=== PATIENT | male | born 1965 | race Hispanic/Latino ===

== ENCOUNTER 2017-11-09 20:33 | Emergency (ER) | payer MEDICARE, OTHER ==
[2017-11-09 21:18] VITALS: RESP 18
[2017-11-09] MEDS ORDERED: Alum-Mag Hydrox-Simethicone Susp (30 mL) PO STA (21:37)
--- NOTE | 2017-11-09 21:54 | ED PDOC ---
Arrival/HPI - General Chief Complaint: GI Problem Time Seen by Provider: 11/09/17 21:36 Historian: Patient - History of Present Illness Narrative History of Present Illness (Text): 11/09/17 21:54 A 52 year old male, whose past medical history includes diabetes and hypertension, presents to the emergency department complaining of vomiting and abdominal pain that developed after eating something for lunch today. Patient also reports diarrhea but denies any shortness of breath or any other complaints at this time. Symptom Onset: Sudden Symptom Course: Unchanged Activities at Onset: Rest Context: Home Past Medical History - Provider Review Nursing Documentation Reviewed: Yes - Infectious Disease Hx of Infectious Diseases: None - Cardiac Hx Cardiac Disorders: Yes Hx Hypertension: Yes Other/Comment: stent x1 - Pulmonary Hx Respiratory Disorders: No - Neurological Hx Neurological Disorder: No - HEENT Hx HEENT Disorder: No - Renal Hx Renal Disorder: No - Endocrine/Metabolic Hx Endocrine Disorders: Yes Hx Diabetes Mellitus Type 2: Yes - Hematological/Oncological Hx Blood Disorders: No - Integumentary Hx Dermatological Disorder: No - Musculoskeletal/Rheumatological Hx Musculoskeletal Disorders: No - Gastrointestinal Hx Gastrointestinal Disorders: No - Genitourinary/Gynecological Hx Genitourinary Disorders: No - Psychiatric Hx Psychophysiologic Disorder: Yes Hx Anxiety: Yes Hx Substance Use: No - Surgical History Hx Cardiac Catheterization: Yes (05/2011) Hx Coronary Stent: Yes (x1) - Anesthesia Hx Anesthesia: Yes Hx Anesthesia Reactions: No Family/Social History - Physician Review Nursing Documentation Reviewed: Yes Family/Social History: No Known Family HX Smoking Status: Never Smoked Hx Alcohol Use: No Hx Substance Use: No Allergies/Home Meds Allergies/Adverse Reactions: Allergies clopidogrel [From Plavix] Allergy (Verified 11/09/17 21:13) RASH Home Medications: Home Meds Medication Instructions Recorded Confirmed Aspirin [Adult Low Dose Aspirin EC] 81 mg PO DAILY 11/09/17 11/09/17 Cyclobenzaprine [Flexeril] 10 mg PO HS 11/09/17 11/09/17 LORazepam [Ativan] 1 mg PO QID 11/09/17 11/09/17 Lisinopril [Zestril] 10 mg PO DAILY 11/09/17 11/09/17 Sertraline [Zoloft] 50 mg PO DAILY 11/09/17 11/09/17 Zolpidem [Ambien] 10 mg PO HS 11/09/17 11/09/17 amLODIPine [Norvasc] 10 mg PO DAILY 11/09/17 11/09/17 metFORMIN [glucOPHAGE] 1 tab PO DAILY 11/09/17 11/09/17 risperiDONE [RisperDAL Tab] 10 mg PO DAILY 11/09/17 11/09/17 Review of Systems - Physician Review All systems were reviewed & negative as marked: Yes - Review of Systems Respiratory: absent: SOB Gastrointestinal: Abdominal Pain, Diarrhea, Vomiting Physical Exam Vital Signs Reviewed: Yes Vital Signs Temp Pulse Resp BP Pulse Ox 11/10/17 01:46 99.3 F 11/10/17 00:54 109 H 18 105/68 97 11/09/17 22:15 101.2 F H 11/09/17 21:15 101.2 F H 120 H 18 127/90 96 Temperature: Febrile Blood Pressure: Normal Pulse: Tachycardic Respiratory Rate: Normal Appearance: Positive for: Well-Appearing, Non-Toxic, Comfortable Pain Distress: None Mental Status: Positive for: Alert and Oriented X 3 - Systems Exam Head: Present: Atraumatic, Normocephalic Pupils: Present: PERRL Extroacular Muscles: Present: EOMI Conjunctiva: Present: Normal Mouth: Present: Moist Mucous Membranes Neck: Present: Normal Range of Motion Respiratory/Chest: Present: Clear to Auscultation, Good Air Exchange. No: Respiratory Distress, Accessory Muscle Use Cardiovascular: Present: Regular Rate and Rhythm, Normal S1, S2. No: Murmurs Abdomen: Present: Normal Bowel Sounds. No: Tenderness, Distention, Peritoneal Signs Back: Present: Normal Inspection Upper Extremity: Present: Normal Inspection. No: Cyanosis, Edema Lower Extremity: Present: Normal Inspection. No: Edema Neurological: Present: GCS=15, CN II-XII Intact, Speech Normal Skin: Present: Warm, Dry, Normal Color. No: Rashes Psychiatric: Present: Alert, Oriented x 3, Normal Insight, Normal Concentration Medical Decision Making ED Course and Treatment: 11/09/17 21:53 Impression: A 52 year old male with vomiting, abdominal pain and diarrhea. Plan: -- Radiology abdomen -- CT abd/pelvis -- labs -- Urinalysis -- Pepcid, Zofran, Maalox -- Reassess and disposition Progress Notes: CT Abdomen and Pelvis With Intravenous Contrast FINDINGS: Lower thorax: Mild hazy infiltration of the lung bases with mild peribronchial cuffing. Correlation with patient's hydration status is recommended. ABDOMEN: Liver: Fatty liver. Gallbladder and bile ducts: Unremarkable. No ductal dilation. Pancreas: Unremarkable. No mass. No ductal dilation. Spleen: Unremarkable. No splenomegaly. Adrenals: Unremarkable. No mass. Kidneys and ureters: Nonobstructive right upper pole renal stone. Right renal hypodensity too small to characterize. Stomach and bowel: Diverticulosis. No obstruction. No mucosal thickening. Appendix: Normal appendix. PELVIS: Bladder: Partially distended bladder with bladder wall thickening. Correlation with urinalysis is recommended only if clinical cystitis is suspected. Reproductive: Mild enlargement of prostate gland. ABDOMEN and PELVIS: Intraperitoneal space: Unremarkable. No free air. No significant fluid collection. Bones/joints: L5-S1 vacuum degenerative disc disease. No acute fracture. No dislocation. Soft tissues: Right inguinal herniation of fat. There is a fat-containing umbilical hernia. Vasculature: Unremarkable. No abdominal aortic aneurysm. Lymph nodes: Unremarkable. No enlarged lymph nodes. IMPRESSION: 1. Mild hazy infiltration of the lung bases with mild peribronchial cuffing. Correlation with patient's hydration status is recommended. 2.No acute abnormality on this contrast CT examination of the abdomen and pelvis . Dictated and Authenticated by: Ely Marina MD 11/10/2017 2:50 AM Eastern Time ([place] & [place]) 11/10/17 04:08 Chest xray: No active disease, as read by me. - Lab Interpretations Lab Results: 11/09/17 22:10 11/09/17 22:10 Lab Results 11/09/17 22:20: Influenza Typ A,B (EIA) Negative for flu a/b 11/09/17 22:10: Sodium 139, Potassium 4.0, Chloride 101, Carbon Dioxide 22, Anion Gap 20, BUN 22 H, Creatinine 0.9, Est GFR ( Amer) > 60, Est GFR ( Non-Af Amer) > 60, Random Glucose 186 H, Calcium 9.4, Total Bilirubin 1.1, AST 41, ALT 32, Alkaline Phosphatase 63, Total Protein 7.7, Albumin 4.3, Globulin 3.4, Albumin/Globulin Ratio 1.3, Lipase 126 11/09/17 22:10: PT 12.6 H, INR 1.10 H 11/09/17 22:10: WBC 14.0 H, RBC 5.33, Hgb 15.8, Hct 44.8, MCV 84.1, MCH 29.6, MCHC 35.3, RDW 13.2, Plt Count 284, MPV 10.6, Gran % 90.2 H, Lymph % (Auto) 4.6 L, [place] % (Auto) 4.0, Eos % (Auto) 1.1 L, Baso % (Auto) 0.1, Gran # 12.64 H, Lymph # 0.6 L, [place] # 0.6, Eos # 0.2, Baso # 0.01, Neutrophils % (Manual) 77 H, Band Neutrophils % 8 H, Lymphocytes % (Manual) 8 L, Monocytes % (Manual) 5, Eosinophils % (Manual) 1, Basophils % (Manual) 1, Platelet Evaluation Normal 11/09/17 21:37: Urine Color Yellow, Urine Appearance Clear, Urine pH 6.0, Ur Specific [place] 1.025, Urine Protein Negative, Urine Glucose (UA) 250 H, Urine Ketones Trace H, Urine Blood Negative, Urine Nitrate Negative, Urine Bilirubin Negative, Urine Urobilinogen 0.2, Ur Leukocyte Esterase Negative I have reviewed the lab results: Yes - RAD Interpretation Radiology Orders: 11/09/17 21:43 ABD 2 VIEWS (FLAT/UP OR DECUB) [RAD] Stat 11/09/17 23:14 ABD PELVIS PO & IV CONTRAST [CT] Stat 11/10/17 03:05 CXR [CHEST PORTABLE] [RAD] Stat - Medication Orders Current Medication Orders: Discontinued Medications Acetaminophen (Tylenol 325mg Tab) 650 mg PO STAT STA Stop: 11/09/17 22:13 Last Admin: 11/09/17 22:15 Dose: 650 mg MAR Pain/Vitals Document 11/09/17 22:15 GMD (Rec: 11/09/17 22:15 GMD [facility] [place] [facility] [id number] Pain Reassessment Is This A Pain ReAssessment? No Sleep Is patient sleeping during reassessment? No Presence of Pain Presence of Pain Yes Vitals Temperature (97.6 F-99.6 F) 101.2 F Temperature Source Oral Al Hydrox/Mg Hydrox/Simethicone (Maalox Plus 30 Ml) 30 ml PO STAT STA Stop: 11/09/17 21:38 Last Admin: 11/09/17 21:50 Dose: 30 ml Famotidine (Pepcid) 40 mg PO STAT STA Stop: 11/09/17 21:38 Last Admin: 11/09/17 21:50 Dose: 40 mg Ondansetron HCl (Zofran Odt) 8 mg PO STAT STA Stop: 11/09/17 21:38 Last Admin: 11/09/17 21:50 Dose: 8 mg - PA / RESIDENTIAL [employer] / Resident Statement MD/DO has reviewed & agrees with the documentation as recorded. - Scribe Statement The provider has reviewed the documentation as recorded by the Scribe Kasi Lee All medical record entries made by the Scribe were at my direction and personally dictated by me. I have reviewed the chart and agree that the record accurately reflects my personal performance of the history, physical exam, medical decision making, and the department course for this patient. I have also personally directed, reviewed, and agree with the discharge instructions and disposition. Disposition/Present on Arrival - Present on Arrival Any Indicators Present on Arrival: No History of DVT/PE: No History of Uncontrolled Diabetes: No Urinary Catheter: No History of Decub. Ulcer: No History Surgical Site Infection Following: None - Disposition Have Diagnosis and Disposition been Completed?: Yes Diagnosis: Viral gastroenteritis Disposition: HOME/ ROUTINE Disposition Time: 04:05 Patient Plan: Discharge Discharge Instructions (ExitCare): Gastroenteritis (ED) Additional Instructions: Mr Huber, Clear liquids only, Zofran for Nausea or Vomiting, Reutn to us if worse. See your doctor this week. Best- Dr. Morales Garcia Prescriptions: Ondansetron ODT [Zofran ODT] 8 mg PO TID #30 odt Referrals: Shabana Lomas, [Primary Care Provider] - Follow up with primary Forms: [employer] ([place])
[2017-11-09 22:23] LABS: BASO # 0.01 K/mm3 (0.0-2.0); BASO % 0.1 % (0.0-3.0); EOS # 0.2 (0.0-0.7); EOS % 1.1 % (1.5-5.0); GRAN # 12.64 (1.4-6.5); GRAN % 90.2 % (50.0-68.0); HEMOGLOBIN 15.8 g/dL (14.0-18.0); LYMPH # 0.6 (1.2-3.4); LYMPH % 4.6 % (22.0-35.0); MEAN CELL VOLUME 84.1 fl (80.0-105.0); MEAN CORPUSCULAR HEMOGLOBIN 29.6 pg (25.0-35.0); MEAN CORPUSCULAR HGB CONC 35.3 g/dl (31.0-37.0); MEAN PLATELET VOLUME 10.6 fl (7.0-11.0); MONO # 0.6 (0.1-0.6); PLATELET COUNT 284 10^3/uL (120.0-450.0); RBC 5.33 10^6/uL (3.5-6.1); RED CELL DISTRIBUTION WIDTH 13.2 % (11.5-14.5)
[2017-11-09 22:28] LABS: INR 1.1 (0.93-1.08); PROTHROMBIN TIME 12.6 SECONDS (9.4-12.5)
[2017-11-09 22:48] LABS: ALB/GLOB RATIO 1.3 (1.1-1.8); ALBUMIN 4.3 g/dL (3.0-4.8); ALT/SGPT 32 U/L (7-56); AST/SGOT 41 U/L (17-59); BLOOD UREA NITROGEN 22 mg/dL (7-21); CALCIUM 9.4 mg/dL (8.4-10.5); GFR AFRICAN-AMERICAN > 60; GFR NON-AFRICAN AMERICAN > 60; LIPASE 126 U/L (23-300)
[2017-11-09] MEDS ORDERED: Iohexol 240 (50 ml) ONE (23:16)
[2017-11-10 00:11] LABS: URINE BILIRUBIN NEGATIVE (NEGATIVE); URINE BLOOD NEGATIVE (NEGATIVE); URINE GLUCOSE (UA) 250 mg/dL (NEGATIVE); URINE LEUKOCYTE ESTERASE NEGATIVE Leu/uL (NEGATIVE); URINE NITRATE NEGATIVE (NEGATIVE); URINE PROTEIN NEGATIVE mg/dL (<30 mg/dL); URINE UROBILINOGEN 0.2 E.U./dL (<1 E.U./dL)
[2017-11-10 00:12] LABS: URINE APPEARANCE CLEAR (CLEAR); URINE COLOR YELLOW (YELLOW)
[2017-11-10 00:27] LABS: BAND 8 % (0-2); BASOPHIL 1 % (0.0-1.0); EOSINOPHIL 1 % (0.0-3.0); LYMPHOCYTE 8 % (22.0-35.0); MONOCYTE 5 % (1.0-6.0); NEUTROPHIL 77 % (50.0-70.0)
[2017-11-10 00:28] LABS: PLATELET ESTIMATE NORMAL (NORMAL)
[2017-11-10] MEDS ORDERED: Iohexol 350 MG/100 ML VIAL ONE (01:23)
[2017-11-10 01:46] VITALS: TEMP 99.3
--- NOTE | 2017-11-10 02:50 | CT ---
EXAM: CT Abdomen and Pelvis With Intravenous Contrast CLINICAL HISTORY: 52 years old, male; Pain; Abdominal pain; Generalized; Additional info: Abdominal pain and elevated wbc TECHNIQUE: Axial computed tomography images of the abdomen and pelvis with intravenous contrast. All CT scans at this facility use one or more dose reduction techniques, viz.: automated exposure control; ma/kV adjustment per patient size (including targeted exams where dose is matched to indication; i.e. head); or iterative reconstruction technique. Oral contrast was administered. 635 images are submitted. Coronal and sagittal reformatted images were created and reviewed. CONTRAST: 96 mL of OMNI 350 administered intravenously. COMPARISON: No relevant prior studies available. FINDINGS: Lower thorax: Mild hazy infiltration of the lung bases with mild peribronchial cuffing. Correlation with patient's hydration status is recommended. ABDOMEN: Liver: Fatty liver. Gallbladder and bile ducts: Unremarkable. No ductal dilation. Pancreas: Unremarkable. No mass. No ductal dilation. Spleen: Unremarkable. No splenomegaly. Adrenals: Unremarkable. No mass. Kidneys and ureters: Nonobstructive right upper pole renal stone. Right renal hypodensity too small to characterize. Stomach and bowel: Diverticulosis. No obstruction. No mucosal thickening. Appendix: Normal appendix. PELVIS: Bladder: Partially distended bladder with bladder wall thickening. Correlation with urinalysis is recommended only if clinical cystitis is suspected. Reproductive: Mild enlargement of prostate gland. ABDOMEN and PELVIS: Intraperitoneal space: Unremarkable. No free air. No significant fluid collection. Bones/joints: L5-S1 vacuum degenerative disc disease. No acute fracture. No dislocation. Soft tissues: Right inguinal herniation of fat. There is a fat-containing umbilical hernia. Vasculature: Unremarkable. No abdominal aortic aneurysm. Lymph nodes: Unremarkable. No enlarged lymph nodes. IMPRESSION: 1. Mild hazy infiltration of the lung bases with mild peribronchial cuffing. Correlation with patient's hydration status is recommended. 2.No acute abnormality on this contrast CT examination of the abdomen and pelvis .
[2017-11-10 04:51] VITALS: BP 110/72; PULSE 90; O2SAT 100
--- NOTE | 2017-11-10 09:11 | RAD ---
HISTORY: ? Inflitrates seen on CT ? COMPARISON: No prior. FINDINGS: LUNGS: No active pulmonary disease. PLEURA: No significant pleural effusion identified, no pneumothorax apparent. CARDIOVASCULAR: Normal. OSSEOUS STRUCTURES: No significant abnormalities. VISUALIZED UPPER ABDOMEN: Normal. OTHER FINDINGS: None. IMPRESSION: No active disease.
--- NOTE | 2017-11-10 09:16 | RAD ---
HISTORY: UPSET STOMACH/VOMITING AND DIARRHEA COMPARISON: No prior. FINDINGS: BOWEL: Normal bowel gas pattern. No evidence of bowel obstruction. Oral contrast seen within the stomach and proximal small bowel. No masses or abnormal calcifications. No hepatic or splenic enlargement. BONES: Normal. OTHER FINDINGS: None. IMPRESSION: No active disease.
== END 2017-11-10 04:21 | disposition home or self-care (01) ==
LOC: ED 20:33
DX: A08.4 Viral intestinal infection, unspecified (principal); E11.9 Type 2 diabetes mellitus without complications; I10 Essential (primary) hypertension
CPT/HCPCS: 71045; 74019; 74177; 80053; 81003; 83690; 85025; 85610; 87804; 99285; Q9966; Q9967